=== PATIENT | female | born 1990 | race Caucasian/White ===

== ENCOUNTER 2016-11-29 18:22 | Outpatient (CLI) | payer BC ==
[~2016-11-29] VITALS: Ht 165.1 cm; Wt 73.5 kg
[2016-11-29 18:52] VITALS: BP 106/67
[2016-11-29] MEDS ORDERED: PRENATAL PLUS1 TA1 PO (18:57)
[2016-11-29] MEDS ORDERED: IRON TABLETS325 MG PO (18:58)
[2016-11-29] MEDS ORDERED: MAG-SO480 MG PO (18:59)
[2016-11-29 19:08] LABS: URINE BILIRUBIN - DIPSTICK NEGATIVE (NEG); URINE BLOOD NEGATIVE (NEG)
== END 2016-11-29 22:00 | disposition home or self-care (01) ==
LOC: OBOUT 18:22 → OB 18:23 → OBOUT 22:00
PROVIDERS: Obstetrics & Gynecology
DX: O60.03 Preterm labor without delivery, third trimester (principal); Z3A.35 35 weeks gestation of pregnancy

== ENCOUNTER → 2016-12-03 | Outpatient (CLI) | payer BC ==
[~2016-12-03] MED LIST: IRON TABLETS325 MG PO; MAG-SO480 MG PO; PRENATAL PLUS1 TA1 PO
== END ==
LOC: LAB 17:42
DX: Z34.80 Encounter for supervision of other normal pregnancy, unspecified trimester (principal)